=== PATIENT | female | born 1990 | race Caucasian/White ===

== ENCOUNTER 2021-01-07 08:56 | Emergency (ER) | payer OTHER ==
[2021-01-07 09:56] LABS: HEMOGLOBIN 14.2 gm/dl (12.3-15.3); RED BLOOD COUNT 5.2 M/UL (4.00-5.10); WHITE BLOOD COUNT 16.9 K/UL (4.5-11.0)
[2021-01-07 12:20] LABS: BUN/CREATININE RATIO 13 (0-10)
[2021-01-07] MEDS ORDERED: SYMBICORT 160-1 INHA INH (14:05)
[2021-01-07] MEDS ORDERED: PULMICORT FLEX90 MCG INH (14:05)
[2021-01-07] MEDS ORDERED: PREDNISONE10 MG PO (14:08)
[2021-01-07] MEDS ORDERED: VIBRAMYCIN100 MG PO (14:08)
== END 2021-01-07 14:25 | disposition home or self-care (01) ==
LOC: ER1 08:56
PROVIDERS: Family Medicine
DX: J45.909 Unspecified asthma, uncomplicated (principal); Z88.0 Allergy status to penicillin; F17.210 Nicotine dependence, cigarettes, uncomplicated
CPT/HCPCS: 80053; 82550; 82553; 83605; 83880; 84484; 85025; 85379; 85610; 93005; 94664; 96374; 99285; J2930; Q9967

== ENCOUNTER → 2021-03-04 | Outpatient (CLI) | payer OTHER ==
[~2021-03-04] MED LIST: PREDNISONE10 MG PO; PULMICORT FLEX90 MCG INH; SYMBICORT 160-1 INHA INH; VIBRAMYCIN100 MG PO
== END ==
LOC: HEART 5 14:41
DX: J45.51 Severe persistent asthma with (acute) exacerbation (principal)
CPT/HCPCS: 94010

== ENCOUNTER → 2021-03-25 | Outpatient (CLI) | payer OTHER | LOC: HEART 5 12:59 | DX: R06.02 Shortness of breath (principal); I08.1 Rheumatic disorders of both mitral and tricuspid valves | CPT/HCPCS: 93306 ==

== ENCOUNTER → 2021-08-28 | Outpatient (CLI) | payer OTHER | LOC: RAD 16:31 | DX: M47.818 Spondylosis without myelopathy or radiculopathy, sacral and sacrococcygeal region (principal); G95.89 Other specified diseases of spinal cord | CPT/HCPCS: 72202 ==